=== PATIENT | female | born 1995 | race Caucasian/White ===

== ENCOUNTER 2017-11-17 16:47 | Emergency (ER) | payer OTHER, SELFPAY ==
[2017-11-17] MEDS ORDERED: Sodium Chloride For Inhalation 0.9% 3 ML NEB ONE (17:12)
[2017-11-17] MEDS ORDERED: Albuterol Sulfate 2.5 mg/0.5 ml Neb ONE (17:12)
[2017-11-17 17:17] LABS: Pregnancy Test - Urine (BHCG) Negative (Negative); Pregu Control Background? CLEAR/WHITE (CLR/WHITE); Pregu Control Bar Appear? YES (CONTROL BAR)
--- NOTE | 2017-11-17 17:45 | RAD ---
RADIOGRAPH CHEST 2 VIEWS: 11/17/17 HISTORY: 22-year-old female with productive cough, chest pain, and dyspnea. FINDINGS: The lungs are clear. The cardiomediastinal silhouette and hilar shadows are normal. There is no ple ural effusion. The osseous structures appear normal. There is no pneumothorax. IMPRESSION: Normal. jn [] POS: [facility]
== END 2017-11-17 17:55 | disposition home or self-care (01) ==
LOC: SCSER 16:47
DX: J20.9 Acute bronchitis, unspecified (principal); F31.9 Bipolar disorder, unspecified; F17.210 Nicotine dependence, cigarettes, uncomplicated; E11.9 Type 2 diabetes mellitus without complications; Z79.4 Long term (current) use of insulin
CPT/HCPCS: 71046; 81025; 94640; J7611

== ENCOUNTER 2017-11-20 15:40 | Emergency (ER) | payer OTHER ==
--- NOTE | 2017-11-20 16:53 | RAD ---
2 VIEW CHEST: Date: 11/20/17 COMPARISON: 11/17/17. INDICATION: Cough. Chest pain. FINDINGS: There is mild patchy left basilar opacity. Right lung is clear. Cardiac silhouette is normal in size. No acute osseous abnormality is seen. IMPRESSION: Mild patchy left basilar opacity. This could relate to volume loss versus a focal area of pneumonia. Correlate clinically and, as necessary, imaging follow-up may be obtained. POS: [facility]
== END 2017-11-20 17:40 | disposition home or self-care (01) ==
LOC: SCSER 15:40
DX: J18.9 Pneumonia, unspecified organism (principal); F17.210 Nicotine dependence, cigarettes, uncomplicated; E11.9 Type 2 diabetes mellitus without complications; Z79.4 Long term (current) use of insulin
CPT/HCPCS: 71046; 99406